=== PATIENT | female | born 1955 | race Caucasian/White ===

== ENCOUNTER 2018-09-19 08:59 | Outpatient (RCR) | payer BC | END 2018-09-21 | LOC: PT 08:59 | PROVIDERS: ATTEND Specialist | DX: M75.42 Impingement syndrome of left shoulder (principal); M54.2 Cervicalgia; M62.81 Muscle weakness (generalized) ==

== ENCOUNTER 2018-10-07 10:00 | Outpatient (RCR) | payer BC | END 2018-10-22 | LOC: PT 10:00 | PROVIDERS: ATTEND Specialist | DX: M75.42 Impingement syndrome of left shoulder (principal); M54.2 Cervicalgia; M62.81 Muscle weakness (generalized) ==

== ENCOUNTER 2020-08-19 09:00 | Outpatient (RCR) | payer BC | END 2020-08-21 | LOC: PT 09:00 | PROVIDERS: ATTEND Specialist | DX: M17.11 Unilateral primary osteoarthritis, right knee (principal) ==

== ENCOUNTER 2020-09-12 09:00 | Outpatient (RCR) | payer BC | END 2020-09-21 | LOC: PT 09:00 | PROVIDERS: ATTEND Specialist | DX: M17.11 Unilateral primary osteoarthritis, right knee (principal) ==